=== PATIENT | female | born 1995 | race Caucasian/White ===

== ENCOUNTER 2020-09-29 21:18 | Emergency (ER) | payer OTHER ==
[~2020-09-29] VITALS: Ht 170.2 cm; Wt 59.0 kg
[2020-09-29 21:48] LABS: URINE BILIRUBIN NEGATIVE (Negative); URINE BLOOD NEGATIVE (Negative); URINE CLARITY SL CLOUDY; URINE COLOR YELLOW; URINE GLUCOSE-RANDOM* NEGATIVE (Negative); URINE KETONES NEGATIVE (Negative); URINE LEUKOCYTES-REFLEX NEGATIVE (Negative); URINE NITRITE-REFLEX NEGATIVE (Negative); URINE PROTEIN (DIPSTICK) NEGATIVE (Negative); URINE SPECIFIC GRAVITY >= 1.030 (1.005-1.035); URINE UROBILINOGEN 0.2 E.U./dl (0.2-1.0)
[2020-09-29 21:57] LABS: AMP/METHAMP POSITIVE (Negative); BARBITURATES Negative (Negative); BENZODIAZEPINES Negative (Negative); COCAINE POSITIVE (Negative); METHADONE Negative (Negative); OPIATES Negative (Negative); PCP Negative (Negative)
[2020-09-29 22:11] LABS: ABSOLUTE NEUTROPHILS 3.6 thou/uL (1.4-8.2); BASOPHILS 0.4 % (0.0-2.0); EOSINOPHILS 1.2 % (0.0-3.0); HEMATOCRIT 40.8 % (37.0-47.0); HEMOGLOBIN 13.8 gm/dL (12.0-15.0); LYMPHOCYTES 28.5 % (24.0-44.0); MCH 29.3 pg (26.0-34.0); MCHC 33.8 g/dL (28.0-37.0); MCV 86.5 fL (80.0-100.0); MONOCYTES 6.2 % (1.0-8.0); PLATELET COUNT 336 thou/uL (150-400); POLYS 63.7 % (36.0-66.0); RBC 4.71 mil/uL (4.20-5.00); RDW 12.5 % (10.5-14.5); WBC 5.7 thou/uL (4.0-11.0)
[2020-09-29 22:19] LABS: ANION GAP 10 mmol/L (7-16); BUN 15 mg/dL (7-18); CALCIUM 9.6 mg/dL (8.5-10.1); CHLORIDE 100 mmol/L (98-107); CO2 28 mmol/L (21-32); CREATININE 1.2 mg/dL (0.6-1.0); GLUCOSE 91 mg/dL (74-106); POTASSIUM 3.4 mmol/L (3.5-5.1); SODIUM 138 mmol/L (136-145)
[2020-09-29 22:25] LABS: ALBUMIN 4.2 g/dL (3.4-5.0); SGOT 19 U/L (15-37); SGPT 31 U/L (30-65); TOTAL BILIRUBIN 1.2 mg/dL (0.2-1.0); TOTAL PROTEIN 8.5 g/dL (6.4-8.2)
[2020-09-29 22:43] LABS: SALICYLATE < 2.8 mg/dL (2.8-20.0)
[2020-09-30 09:04] VITALS: BP 101/54
--- NOTE | 2020-09-30 12:35 | EKG ---
[place] [address] [employer] [place] [address] ELECTROCARDIOGRAM REPORT Name: OBEY GANDARA Room #: DEP ERIN Seth#: [id number] Admission: 09/29/20 Attend Phys: Discharge: 09/30/20 Date of : [birth year] Report #: [id number] [facility] ED Test Date: 2020-09-29 Test Time: 21:46:34 Pat Name: OBEY GANDARA Department: Room: Gender: F Agriculture Manager: SONNY : 1995 Requested By: Cary Rueda Order Number: [id number] MD: Bentley Darnell Measurements Intervals [place] Rate: 68 P: 38 NV: 120 QRS: 84 QRSD: 92 T: 50 QT: 406 QTc: 432 Interpretive Statements Sinus rhythm ST elev, probable normal early repol pattern No previous ECG available for comparison Electronically Signed On 09-30-2020 12:34:57 TRANSPORTATION CONSULTANT by Bentley Darnell [email or web address] <ELECTRONICALLY SIGNED> By: Bentley Darnell MD, [facility] 09/30/20 1234 2146 2146 Bentley Darnell MD, FACC /EPI
== END 2020-09-30 09:49 | disposition home or self-care (01) ==
LOC: ER 21:18
PROVIDERS: Physician Assistant
DX: R41.82 Altered mental status, unspecified (principal); Z20.828 Contact with and (suspected) exposure to other viral communicable diseases; F24 Shared psychotic disorder; F14.90 Cocaine use, unspecified, uncomplicated; F15.10 Other stimulant abuse, uncomplicated